=== PATIENT | female | born 1980 | race Caucasian/White ===

== ENCOUNTER 2016-09-14 23:05 | Outpatient (CLI) | payer MEDICAID ==
[~2016-09-14] VITALS: Ht 154.9 cm; Wt 91.8 kg
[~2016-09-14 23:05] MED LIST: PREN1TAB49
[2016-09-14 23:35] VITALS: BP 113/59; PULSE 78; RESP 18
--- NOTE | 2016-09-15 00:39 | QN ---
Documentation Comment 35+wks GA R/o labot No VB (Had spotting earlier) +FM No LOF No CTXs NST reassring [place] No CTS Pelvic L/C/p No blood in vaginal vault ---IF BPP 04/05 can be discharged Instructions reviewed with patient CITLALLI KELLY M.D. Sep 15, 2016 00:39
[2016-09-15 01:29] LABS: ADD UMIC YES; URINE BILIRUBIN (Dip) NEGATIVE (NEGATIVE); URINE BLOOD (Dip) 2+ (NEGATIVE); URINE COLOR LT. YELLOW (YELLOW); URINE GLUCOSE (Dip) NEGATIVE (NEGATIVE); URINE KETONES (Dip) TRACE (NEGATIVE); URINE LEUKOCYTE ESTERASE (Dip) 2+ (NEGATIVE); URINE NITRITE (Dip) NEGATIVE (NEGATIVE); URINE UROBILINOGEN (Dip) 0.2 E.U./dL (0.1-1.0)
[2016-09-15 01:39] LABS: URINE TOTAL PROTEIN (Dip) NEGATIVE (NEGATIVE)
[2016-09-15 01:47] LABS: BACTERIA,URINE MANY; SQUAMOUS EPITHELIAL CELL,UR MANY; URINE RBCS 0-2 /HPF ([, 0])
--- NOTE | 2016-09-15 01:58 | RADRPT ---
PROCEDURE: US OB biophysical profile. CLINICAL INDICATION: Bleeding TECHNIQUE: Multiple sonographic images of the pelvis were obtained. The images were reviewed on a PACS workstation. COMPARISON: No pertinent prior examinations were submitted for comparison. FINDINGS: There is a single viable intrauterine gestation. Cardiac activity is present with 154 beats per min sandra. There is a vertex presentation. The placenta is lateral on the right, grade 1/2 in appearance. There is a normal amount of amniotic fluid with an ADELINA = 12.2 cm. Biophysical profile: movement 2/2 tone 2/2. breathing 2/2 ADELINA 2/2 Total 04/05 IMPRESSION: Normal biophysical profile. RPTAT: HIKT . .Juan Carlos Saucedo MD, MD Date Time Electronically viewed and signed by .Juan Carlos Saucedo MD, on 09/15/2016 01:58 .T/
--- NOTE | 2016-09-15 01:59 | RADRPT ---
PROCEDURE: US OB. CLINICAL INDICATION: Vaginal bleeding. TECHNIQUE: Multiple sonographic images of the pelvis were obtained. Transabdominal imaging only w as performed. The images were reviewed on a PACS workstation. COMPARISON: 07/12/2016. FINDINGS: Single live intrauterine is identified. Cardiac activity is present with 144 beats per mi nute. There is a vertex presentation. Measurements: BPD = 36 weeks 0 days. HC = 34 weeks 6 days. AC = 40 weeks 0 days. FL = 36-week 0 days. Estimated gestational age of approximately 36 weeks 5 days. The estimated date of delivery is 10/08/2016. The EFW = 3381 g which is at the 96 percentile. Limited evaluation of anatomy demonstrates abnormal slightly decreased ratio of the head circu mference to abdominal circumference, femur length to abdominal circumference and slightly increased femur length to head circumference. The placenta is right lateral. There is no evidence for an abruption or placenta previa. IMPRESSION: Single live intrauterine gestation of approximately 36 weeks 5 days. weight is 3381 g which i s at the 96 percentile. Abnormal measurement ratios raising possibility of IUGR. RPTAT: HMVK .Juan Dean MD, MD Date Time Electronically viewed and signed by .Juan Dean MD, MD on 09/15/2016 01:59 .K/
--- NOTE | 2016-09-15 03:14 | TRIAGE ---
OB Triage Datetime Report Generated by CPN: 09/15/2016 03:13 Datetime: 09/15/2016 01:46 Monitor Mode: External US Datetime: 09/15/2016 00:36 Labor Evaluation Frequency: q15 Monitor Mode: External Quality: Mild Pattern: Normal: <= 5 Contractions in 10 Minutes Resting Tone [place]: Relaxed Heart Rate FHR Baseline Rate: 140 Monitor Mode: External US FHR Baseline Changes: No Baseline Change Variability: Moderate 6-25 bpm Accelerations: 15X15 Decelerations: None Category: Category I Vaginal Exam Dilatation (cms): 0.0 Effacement (%): 0 Station: -3 Exam By: Dr Rosas Membrane Status: Intact Vaginal Bleeding: None Cervix, Consistency: Moderate Cervix, Position: Posterior Datetime: 09/14/2016 23:55 Stage of : OB Triage Labor Evaluation Frequency: x1 Monitor Mode: External Quality: Mild Pattern: Normal: <= 5 Contractions in 10 Minutes Resting Tone [place]: Relaxed Heart Rate FHR Baseline Rate: 140 Monitor Mode: External US Variability: Moderate 6-25 bpm Accelerations: 15X15 Decelerations: None Category: Category I Datetime: 09/14/2016 23:41 Time of Arrival: 09/14/2016 23:04 EGA: 35.5 Arrived By: Wheelchair Arrived From: Home Chief Complaint: SAB 2 w/ hx PTD presents w/ c/o "sm amt blood dripping when went to [place] 30 mi n ago" Movement: Present Contractions: Denies/Absent Rupture of Membranes: Denies Vaginal Bleeding: Small Vaginal Discharge: Denies Recent Sexual Intercouse: Denies Abdominal Trauma: Not Applicable Patient Complaints: Other Initial Plan: EFM Datetime: 09/14/2016 23:24 Labor Evaluation Frequency: placed Monitor Mode: External Resting Tone [place]: Relaxed Monitor Mode: External US Comments: FHT 140 Datetime: 07/12/2016 19:53 EGA: 26.4 Datetime: 07/12/2016 19:49 Fall Risk Assessment Fall Score: 0 Fall Risk Score Definition: No Risk: No action required
== END 2016-09-15 03:07 | disposition home or self-care (01) ==
LOC: L-D 23:05 → OBT 23:05
PROVIDERS: ATTEND Obstetrics & Gynecology
DX: O26.853 Spotting complicating pregnancy, third trimester (principal); O09.523 Supervision of elderly multigravida, third trimester; Z3A.35 35 weeks gestation of pregnancy
CPT/HCPCS: 76815; 76818; 81001; 81003; G0463

== ENCOUNTER 2016-09-17 22:47 | Outpatient (CLI) | payer MEDICAID ==
[~2016-09-17] VITALS: Ht 154.9 cm; Wt 93.0 kg
[2016-09-17 22:49] VITALS: Ht 154.9 cm; Wt 93.0 kg
[2016-09-17 22:55] VITALS: BP 118/55; PULSE 75; RESP 18
--- NOTE | 2016-09-18 00:27 | RADRPT ---
PROCEDURE: Biophysical profile. CLINICAL INDICATION: Pelvic pain. TECHNIQUE: Multiple sonographic images of the pelvis were obtained with transabdominal technique. COMPARISON: 09/15/2016. FINDINGS: There is a single living intrauterine gestation with the fetus in a vertex position. The placenta i s fundal in location, grade II. heart tones of 144 beats per minute are identified. There is normal amniotic fluid volume with an ADELINA of 14.8 cm. breathing movements = 2 Gross body movements = 2 tone = 2 Qualitative AFV = 2 IMPRESSION: Biophysical profile 8 out of 8. .Mekhi Lombardo MD, Date Time Electronically viewed and signed by .Mekhi Lombardo MD, on 09/18/2016 00:26 .T/
--- NOTE | 2016-09-18 00:52 | TRIAGE ---
OB Triage Datetime Report Generated by CPN: 09/18/2016 00:52 Datetime: 09/18/2016 00:16 Heart Rate FHR Baseline Rate: 130 Comments: u/s changed Datetime: 09/17/2016 23:46 Heart Rate FHR Baseline Rate: 130 Monitor Mode: External US Comments: Baby difficult to monitor Datetime: 09/17/2016 23:26 Monitor Mode: External Datetime: 09/17/2016 22:54 Stage of : OB Triage Temperature Route: Oral Datetime: 09/17/2016 22:52 Maternal Assessment Level of Consciousness: Fully Conscious Headache: Denies Blurred Vision: No Nausea/Vomiting: Denies RUQ Epigastric Pain: Denies Facial Edema: None Labor Evaluation Frequency: placed Monitor Mode: External Heart Rate FHR Baseline Rate: 140 Monitor Mode: External US Pain Assessment Pain Scale: 6 Pain Presence: Intermittent Pain Type: Cramping Pain Location: Abdomen Datetime: 09/17/2016 22:50 Time of Arrival: 09/17/2016 22:43 EGA: 36.1 Arrived By: Ambulatory Arrived From: Home Chief Complaint: w/ orders for follow-up NST/BPP d/t u/s result of possible IUGR Tues. Movement: Present Contractions: Occasional Contractions: q15-20 Rupture of Membranes: Denies Vaginal Bleeding: None Vaginal Discharge: Denies Recent Sexual Intercouse: Denies Abdominal Trauma: Not Applicable Patient Complaints: Cramping Time Provider Notified: 09/18/2016 00:35 Provider Notified: Dr Nguyen Initial Plan: NST/BPP Datetime: 09/15/2016 03:00 Stage of : OB Triage Labor Evaluation Frequency: 5-10 Monitor Mode: External Quality: Mild Pattern: Normal: <= 5 Contractions in 10 Minutes Resting Tone [place]: Relaxed Contraction Comments: pt denies feeling discomfort Heart Rate FHR Baseline Rate: 130 Monitor Mode: External US FHR Baseline Changes: No Baseline Change Variability: Moderate 6-25 bpm Accelerations: 15X15 Decelerations: None Category: Category I Pain Assessment Pain Scale: 0 Pain Presence: None/Denies Pain Type: N/A Datetime: 09/14/2016 23:41 EGA: 35.5 Datetime: 07/12/2016 19:53 EGA: 26.4 Datetime: 07/12/2016 19:49 Fall Risk Assessment Fall Score: 0 Fall Risk Score Definition: No Risk: No action required
== END 2016-09-18 00:50 | disposition home or self-care (01) ==
LOC: L-D 22:47 → OBT 22:47
PROVIDERS: ATTEND Obstetrics & Gynecology
DX: O62.9 Abnormality of forces of labor, unspecified (principal); R10.2 Pelvic and perineal pain; O09.523 Supervision of elderly multigravida, third trimester; Z3A.36 36 weeks gestation of pregnancy
CPT/HCPCS: 76818; Z7500; G0463

== ENCOUNTER 2016-10-08 05:53 | Inpatient (IN) | payer MEDICAID ==
[~2016-10-08] VITALS: Ht 154.9 cm; Wt 93.1 kg
[2016-10-08 05:58] VITALS: BP 134/83; PULSE 82; RESP 18
[2016-10-08] MEDS ORDERED: LACTATED RINGER'S 1,000 ML IV SCH (05:59)
[2016-10-08] MEDS ORDERED: OXYTOCIN 30 UNITS/LR 500 ML IV SCH ×3 (06:00→08:00)
[2016-10-08] MEDS ORDERED: BUTORPHANOL 2 MG INJ IV PRN (06:00)
[2016-10-08] MEDS ORDERED: AMPICILLIN 2 GM/NS (PMX) 100 ML IV ONE (06:00)
[2016-10-08] MEDS ORDERED: OXYTOCIN 30 UNITS/LR 500 ML IV PRN ×2 (06:00→11:00)
[2016-10-08] MEDS ORDERED: CARBOPROST 250 MCG INJ IM PRN ×2 (06:00→11:00)
[2016-10-08] MEDS ORDERED: MISOPROSTOL 200 MCG TAB PR PRN ×2 (06:00→11:00)
[2016-10-08] MEDS ORDERED: METHYLERGONOVINE 0.2 MG INJ IM PRN ×2 (06:00→11:00)
[2016-10-08] MEDS ORDERED: IBUPROFEN 600 MG TAB PO PRN (06:00)
[2016-10-08] MEDS ORDERED: LIDOCAINE 1% (MPF) 30 ML INJ INJ PRN (06:00)
--- NOTE | 2016-10-08 06:07 | TRIAGE ---
OB Triage Datetime Report Generated by CPN: 10/08/2016 06:07 Datetime: 10/08/2016 06:04 Time of Arrival: 10/08/2016 05:45 EGA: 39.1 Arrived By: Wheelchair Arrived From: Home Chief Complaint: w/ c/o ucs. No PNR available Movement: Present Contractions: Regular Time Contractions Began: 10/08/2016 04:30 Contractions: q5 Rupture of Membranes: Denies Vaginal Bleeding: Moderate Vaginal Discharge: Present Recent Sexual Intercouse: Denies Abdominal Trauma: Not Applicable Patient Complaints: Contractions Time Provider Notified: 10/08/2016 06:00 Provider Notified: Dr Samuels Datetime: 09/18/2016 00:39 Stage of : OB Triage Datetime: 09/18/2016 00:35 Stage of : OB Triage Labor Evaluation Monitor Mode: External Pattern: Normal: <= 5 Contractions in 10 Minutes Resting Tone [place]: Relaxed Heart Rate FHR Baseline Rate: 130 Monitor Mode: External US FHR Baseline Changes: No Baseline Change Variability: Moderate 6-25 bpm Accelerations: 15X15 Decelerations: None Category: Category I Datetime: 09/17/2016 22:50 EGA: 36.1 Datetime: 09/14/2016 23:41 EGA: 35.5 Datetime: 07/12/2016 19:53 EGA: 26.4 Datetime: 07/12/2016 19:49 Fall Risk Assessment Fall Score: 0 Fall Risk Score Definition: No Risk: No action required
[2016-10-08 06:23] LABS: ADD SCAN DIFF NO
[2016-10-08 06:39] LABS: INR 0.84; PROTIME 11.5 Sec (12.2-14.2); PT RATIO 0.9
[2016-10-08 06:40] LABS: PARTIAL THROMBOPLASTIN TIME 27.7 Sec (25.0-35.0)
[2016-10-08 06:42] LABS: BASOPHILS % 0.6 % (0.0-2.0); EOSINOPHILS # 0.1 10^3/ul (0.0-0.5); HEMATOCRIT 34.3 % (37.0-47.0); HEMOGLOBIN 11.5 g/dl (12.0-16.0); LYMPHOCYTES # 1.8 10^3/ul (0.8-2.9); LYMPHOCYTES % 26.6 % (15.0-51.0); MEAN CORPUSCULAR HGB CONC 33.5 g/dl (32.0-37.0); MEAN CORPUSCULAR VOLUME 95.5 fl (82.0-101.0); MEAN PLATELET VOLUME 11.3 fl (7.4-10.4); MONOCYTE # 0.5 10^3/ul (0.3-0.9); MONOCYTES % 6.9 % (0.0-11.0); NEUTROPHIL # 4.2 10^3/ul (1.6-7.5); NEUTROPHILS % 62.7 % (39.0-77.0); PLATELET COUNT 235 10^3/UL (140-415); RED BLOOD COUNT 3.59 10^6/ul (4.20-5.40); RED CELL DISTRIBUTION WIDTH 13.2 % (11.5-14.5); WHITE BLOOD COUNT 6.6 10^3/ul (4.8-10.8)
--- NOTE | 2016-10-08 07:38 | HP ---
Date/Time of Note Date/Time of Note DATE: 10/08/16 TIME: 07:37 OB - History Hx of Present Free Text/Dictation in active labor 39 weeks Care: Good Care Ultrasounds: Normal mid trimester US Obstetrical Complications: None Medical Complications: None Past Family/Social History * Past Medical, Surgical, Family and Obstetric Histories reviewed from chart. OB Admission Exam Vital Signs Vital Signs Vital Signs Date Time Temp Pulse Resp B/P Pulse Ox O2 Delivery O2 Flow Rate FiO2 10/08/16 05:58 97.6 82 18 134/83 Room Air Physical Exam HEENT: WNL Heart: Rhythm Normal Lungs: Clear, Equal Abdomen: WNL Extremities: Normal Reflexes: Normal Cervical Dilatation: 10cm Effacement: 100% Station: +3 Membranes: Ruptured Amniotic Fluid: Clear Accelerations: Accelerations Present Intensity: Moderate OB Assessment/Plan Reason for admission: active labor Plan: Expectant Management IVET GARCIA MD Oct 08, 2016 07:38
--- NOTE | 2016-10-08 07:39 | LDN ---
Date/Time of Note Date/Time of Note DATE: 10/08/16 TIME: 07:38 Delivery Summary nsd w/o complications Anesthesia type: None Estimated blood loss: 350 Sponge & Needle done & correct: Yes All needle counts correct: Yes Any foreign bodies felt in the: No Problems: IVET GARCIA MD Oct 08, 2016 07:39
[2016-10-08] MEDS ORDERED: AMPICILLIN 1 GM/NS (PMX) 50 ML IV SCH (10:00)
[2016-10-08 10:40] VITALS: BP 126/58; PULSE 74; RESP 20
[2016-10-08] MEDS ORDERED: LACTATED RINGER'S 1,000 ML IV* SCH (10:40)
[2016-10-08] MEDS ORDERED: DIPHENHYDRAMINE 25 MG CAP PO PRN (11:00)
[2016-10-08] MEDS ORDERED: SENNA/DOCUSATE NA (8.6MG/50MG) TAB PO PRN (11:00)
[2016-10-08] MEDS ORDERED: LANOLIN 7 GM TUBE TOP PRN (11:00)
[2016-10-08] MEDS ORDERED: BENZOCAINE 20% 56 ML SPRAY TOP PRN (11:00)
[2016-10-08] MEDS ORDERED: ZOLPIDEM 5 MG TAB PO PRN (11:00)
[2016-10-08] MEDS ORDERED: ACETAMINOPHEN/CODEINE #3 TAB PO PRN (11:00)
[2016-10-08] MEDS ORDERED: ACETAMINOPHEN 325 MG TAB PO PRN (11:00)
[2016-10-08] MEDS ORDERED: MAGNESIUM HYDROXIDE 30ML CUP PO PRN (11:00)
[2016-10-08] MEDS: OXYTOCIN 30 UNITS/LR 500 ML IV SCH ×2 (11:08→14:40)
[2016-10-08] MEDS: WITCH HAZEL/GLYCERIN PAD PR PRN (11:54)
[2016-10-08] MEDS: IBUPROFEN 800 MG TAB PO SCH ×2 (12:00→18:00)
[2016-10-08 12:30] VITALS: BP 119/54; PULSE 69; RESP 18
[2016-10-08 16:10] VITALS: BP 109/55; PULSE 70; RESP 18
[2016-10-08 19:45] VITALS: BP 116/47; PULSE 72; RESP 18
[2016-10-09 04:15] VITALS: BP 108/59; PULSE 86; RESP 17
[2016-10-09] MEDS: IBUPROFEN 800 MG TAB PO SCH ×4 (05:26→18:00)
[2016-10-09 07:25] LABS: ADD SCAN DIFF NO
[2016-10-09 07:37] LABS: BASOPHILS % 0.3 % (0.0-2.0); EOSINOPHILS # 0.1 10^3/ul (0.0-0.5); EOSINOPHILS % 1.2 % (0.0-7.0); HEMATOCRIT 30.5 % (37.0-47.0); HEMOGLOBIN 10.4 g/dl (12.0-16.0); LYMPHOCYTES # 1.5 10^3/ul (0.8-2.9); LYMPHOCYTES % 16.5 % (15.0-51.0); MEAN CORPUSCULAR HEMOGLOBIN 32.8 pg (29.0-33.0); MEAN CORPUSCULAR VOLUME 96.7 fl (82.0-101.0); MEAN PLATELET VOLUME 9.3 fl (7.4-10.4); MONOCYTE # 0.6 10^3/ul (0.3-0.9); MONOCYTES % 7.2 % (0.0-11.0); NEUTROPHIL # 6.7 10^3/ul (1.6-7.5); NEUTROPHILS % 74.8 % (39.0-77.0); PLATELET COUNT 215 10^3/UL (140-440); RED BLOOD COUNT 3.15 10^6/ul (4.20-5.40); RED CELL DISTRIBUTION WIDTH 14.3 % (11.5-14.5)
[2016-10-09 07:45] VITALS: BP 113/59; PULSE 68; RESP 19
--- NOTE | 2016-10-09 11:17 | PD.PPDC ---
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
--- NOTE | 2016-10-09 11:20 | DS ---
Date/Time of Note Date/Time of Note DATE: 10/09/16 TIME: 11:19 Obstetrical Discharge Record Final Diagnosis Final Diagnosis: Term delivered Vaginal Delivery Obstetrical Delivery: Spontaneous, Laceration, Repaired Complications Augmentation: Yes Induction: No Condition on Discharge Physical Assessment Last Vitals: T= 98.5. BP 133/59. Voiding: Yes Bowel Movement: Yes Breast: Soft, non-tender Fundus: Firm Calf Tenderness: No Patient Condition: Good PAVAN BABCOCK MD Oct 09, 2016 11:20
[2016-10-09] MEDS ORDERED: INFLUENZA VIRUS VACCINE 0.5 ML SYG IM* ONE (11:30)
[2016-10-09 15:35] VITALS: BP 106/70; PULSE 80; RESP 19
[2016-10-09 20:00] VITALS: BP 122/55; PULSE 76; RESP 19
[2016-10-10 04:30] VITALS: BP 115/56; PULSE 73; RESP 19
[2016-10-10] MEDS: IBUPROFEN 800 MG TAB PO SCH ×3 (06:00→12:00)
[2016-10-10] MEDS: WITCH HAZEL/GLYCERIN PAD PR PRN (06:56)
[2016-10-10 08:15] VITALS: BP 119/73; PULSE 67; RESP 16
[2016-10-10] MEDS ORDERED: DIPHTH/TET/ACEL PERTUSS (ADULT) 0.5 ML VIAL IM* ONE (09:00)
[2016-10-10] MEDS ORDERED: MEASLES,MUMPS,RUBELLA VACCINE INJ SC* ONE (09:00)
[2016-10-10] MEDS ORDERED: VARICELLA VACCINE LIVE/PF 1,350 UNIT/0.5 ML ML SC* ONE (09:00)
[2016-10-11] MEDS ORDERED: INFLUENZA VIRUS VACCINE 0.5 ML SYG IM* ONE (09:00)
== END 2016-10-10 15:20 | disposition home or self-care (01) | DRG 775 ==
LOC: OBT 05:53 → L-D 05:54 → OBT 06:00 → L-D 06:00 → PP1 10:50
PROVIDERS: ADMIT Obstetrics & Gynecology; ATTEND Obstetrics & Gynecology
PROC: 10E0XZZ Delivery of Products of Conception, External Approach (ICD-10-PCS; principal; 2016-10-08)
PROC: 3E00X4Z Introduction of Serum, Toxoid and Vaccine into Skin and Mucous Membranes, External Approach (ICD-10-PCS; 2016-10-10)
DX: O80 Encounter for full-term uncomplicated delivery (principal); Z23 Encounter for immunization; Z3A.39 39 weeks gestation of pregnancy; Z37.0 Single live birth
CPT/HCPCS: 36415; 85025; 85610; 85730; 86592; 86900; 86901; 87340; 90686; 90715; 90716; 96360; G0463; J0290; J2590; J7120

== ENCOUNTER 2018-10-30 02:14 | Emergency (ER) | payer MEDICAID ==
[~2018-10-30] VITALS: Ht 154.9 cm; Wt 76.2 kg
[2018-10-30 02:21] VITALS: Ht 154.9 cm; Wt 76.2 kg
[2018-10-30] MEDS ORDERED: SOD CHLORIDE 0.9% 1,000 ML IV STA (02:48)
[2018-10-30] MEDS ORDERED: ONDANSETRON 4 MG INJ IV STA (02:48)
--- NOTE | 2018-10-30 03:04 | ERD ---
ER Documentation Chief Complaint Chief Complaint WEAKNESS, SOB, CONGESTION, VOMITING X 1 HOUR HPI This is a 38-year-old female presents ED with complaints of nausea and vomiting with associated lower abdominal pain that started 1 hour prior to arrival in ED. Patient states that she had 2 episodes of nonbilious nonbloody vomiting. Admits to chills and some weakness following the 2 episodes of vomiting. Denies shortness of breath despite what chief complaint states. Denies fever, sore throat, ear pain, hemoptysis, hematemesis, diarrhea, constipation, melena, hematochezia, chest pain, cough, shortness of breath, trouble breathing, sputum production, dysuria, hematuria and all other symptoms. No known drug allergies. Currently on menses. ROS All systems reviewed and are negative except as per history of present illness. Medications Home Meds Reported Medications Vits W-Ca,Fe,Fa(<1MG) () 1 Tab Tablet 09/09/11 Allergies Allergies: Coded Allergies: No Known Drug Allergy (Verified Allergy, Unknown, 10/08/16) PMhx/Soc History of Surgery: Yes (D&C 2X) Anesthesia Reaction: No Hx Neurological Disorder: No Hx Respiratory Disorders: No Hx Cardiac Disorders: No Hx Psychiatric Problems: No Hx Miscellaneous Medical Probl: No (abdominal pa) Hx Alcohol Use: No Hx Substance Use: No Hx Tobacco Use: No Smoking Status: Never smoker FmHx Family History: No diabetes Physical Exam Vitals Vital Signs Date Temp Pulse Resp B/P (MAP) Pulse Ox O2 O2 Flow FiO2 Time Delivery Rate 10/30/18 97.0 79 18 123/71 99 02:21 (88) Physical Exam Physical Exam Vitals signs: Reviewed by me. General: Well developed, well nourished, in no acute distress. Patient is awake and alert. Head: Normocephalic, atraumatic. Eyes: Normal conjunctiva, Pupils PERRLA, EOM intact grossly ENT: Pharynx is clear, Moist mucous membranes, external ears, nose and mouth normal Neck: Supple, no masses, lymphadenopathy or JVD Respiratory: Clear to auscultation bilaterally with no wheezing, rhonchi, rales, no distress Cardiovascular: RRR, no murmurs, rubs, or gallops Abdominal: Soft, n nondistended, no peritoneal signs, no rigidity, no surgical abdomen, bowel sounds present all 4 quadrants, nontender light deep palpation all 4 quadrants, McBurney's point nontender, no rebound tenderness, mild suprapubic discomfort Back: No midline tenderness. No flank tenderness Neurologic: Alert and oriented, moving all extremities, normal speech, no focal weakness, no cerebellar signs. Normal mentation Skin: warm and dry, No rash Psych: Anxious Result Diagram: 10/30/18 0308 10/30/18 0308 Results 24 hrs Laboratory Tests Test 10/30/18 03:08 10/30/18 03:13 White Blood Count 10.4 10^3/ul Red Blood Count 4.06 10^6/ul Hemoglobin 12.9 g/dl Hematocrit 38.4 % Mean Corpuscular Volume 94.6 fl Mean Corpuscular Hemoglobin 31.8 pg Mean Corpuscular Hemoglobin Concent 33.6 g/dl Red Cell Distribution Width 11.9 % Platelet Count 280 10^3/UL Mean Platelet Volume 10.0 fl Immature Granulocytes % 0.600 % Neutrophils % 83.5 % Lymphocytes % 9.5 % Monocytes % 4.7 % Eosinophils % 1.3 % Basophils % 0.4 % Nucleated Red Blood Cells % 0.0 /100WBC Immature Granulocytes # 0.060 10^3/ul Neutrophils # 8.7 10^3/ul Lymphocytes # 1.0 10^3/ul Monocytes # 0.5 10^3/ul Eosinophils # 0.1 10^3/ul Basophils # 0.0 10^3/ul Nucleated Red Blood Cells # 0.0 10^3/ul Urine Color YELLOW Urine Clarity CLOUDY Urine pH 7.0 Urine Specific [place] 1.024 Urine Ketones NEGATIVE mg/dL Urine Nitrite NEGATIVE mg/dL Urine Bilirubin NEGATIVE mg/dL Urine Urobilinogen NEGATIVE mg/dL Urine Leukocyte Esterase 3+ Sree/ul Urine Microscopic RBC 166 /HPF Urine Microscopic WBC 55 /HPF Urine Squamous Epithelial Cells MODERATE /HPF Urine Bacteria MODERATE /HPF Urine Mucus MODERATE /HPF Urine Hemoglobin 3+ mg/dL Urine Glucose NEGATIVE mg/dL Urine Total Protein 1+ mg/dl Sodium Level 141 mmol/L Potassium Level 4.0 mmol/L Chloride Level 108 mmol/L Carbon Dioxide Level 25 mmol/L Anion Gap 8 Blood Urea Nitrogen 11 mg/dl Creatinine 0.60 mg/dl Est Glomerular Filtrat Rate mL/min > 60 mL/min Glucose Level 103 mg/dl Calcium Level 8.7 mg/dl Total Bilirubin 0.3 mg/dl Direct Bilirubin 0.00 mg/dl Indirect Bilirubin 0.3 mg/dl Aspartate Amino Transf (AST/SGOT) 30 IU/L Alanine Aminotransferase (ALT/SGPT) 17 IU/L Alkaline Phosphatase 50 IU/L Troponin I < 0.012 ng/ml Total Protein 7.5 g/dl Albumin 4.0 g/dl Globulin 3.50 g/dl Albumin/Globulin Ratio 1.14 Lipase 106 U/L POC Beta HCG, Qualitative NEGATIVE Current Medications Medications Dose Sig/Deep Start Time Status Last (Trade) Ordered Route PRN Stop Time Admin Dose Reason Admin Sodium 1,000 ml @ Q1H STAT 10/30/18 DC 10/30/18 Chloride 1,000 mls/hr IV 02:48 10/30/18 03:10 03:47 Ondansetron 4 mg ONCE STAT 10/30/18 DC 10/30/18 HCl (Zofran IV 02:48 10/30/18 03:12 Inj) 02:52 Procedures/MDM EKG, MONITORS, & DIAGNOSTIC IMAGING: [place] [id number] Radiology Main Line: [phone] DIAGNOSTIC IMAGING REPORT Patient: LEO BLUNT : 1980 Age: 38 Sex: F MR #: [id number] DOS: 10/30/18 0248 Ordering MD: MELISSA HALL PA-C Location: [facility] Room/Bed: PROCEDURE: CT Abdomen and Pelvis without contrast. CLINICAL INDICATION: Abdominal discomfort TECHNIQUE: CT scan of the abdomen and pelvis without contrast was performed on a multi-detector high-resolution CT scanner. No intravenous contrast was administered. Coronal and sagittal reformatted images were obtained from the axial source images. The total exam CTDI equals 16 mGy and the total exam DLP equals 920 mGy-cm. DICOM images are available. One or more of the following dose reduction techniques were utilized: 1.) Automated exposure control 2.) Adjustment of the mA +/- kV according to patient's size 3.) Use of iterative reconstruction technique. COMPARISON: None. FINDINGS: Imaged portions of the chest are unremarkable. The liver, pancreas, and spleen are unremarkable. The gallbladder is within normal limits. No adrenal nodules are seen. There is no evidence for obstructive uropathy. There is a punctate nonobstructing calculus within the right renal mid pole. There are no suspicious adnexal lesions. The bladder is unremarkable. There is no evidence for bowel obstruction. The appendix is normal in caliber. There is moderate stool in the colon. There is no ascites. There is no intra-abdominal free air. There is no mesenteric, retroperitoneal or pelvic sidewall lymphadenopathy. The abdominal aorta is normal in caliber. Visualized osseous structures are intact. IMPRESSION: Punctate nonobstructing calculus within the right renal mid pole. No evidence for obstructive uropathy. Normal-caliber appendix. RPTAT: HAP Admit-r Gio, Physician Date Time Electronically viewed and signed by Admit-r Gio, Physician on 10/30/2018 04:31 AP/ CC: MELISSA HALL PA-C [id number] EKG read by laura: Rate/Rhythm: Regular rate and rhythm at a rate of 68 Intervals: Normal Impression: No evidence of ischemia or arrhythmia No ST elevation, no widened QRS, no VA interval prolongation, and no QT interval prolongation LAB INTERPRETATION: CBC shows no evidence of hemorrhage or infection, elevated neutrophil percentage of 83.5, Chemistry shows no evidence of significant electrolyte abnormalities or renal insufficiency Liver function test shows no evidence of acute biliary or hepatic dysfunction Lipase shows no evidence of acute pancreatitis Cardiac biomarkers show no evidence of acute myocardial injury or coronary ischemia Urine negative Urinalysis remarkable for 55 microscopic WBCs, 166 microscopic RBCs, 3+ leukocyte esterase ER COURSE: The patient was given IV normal saline Zofran The medication was well tolerated and the patient reports improvement in symptoms. The patient was stable throughout ED course. I kept the patient and/or family informed of laboratory and diagnostic imaging results throughout the emergency room course. The patient was promptly evaluated and a treatment plan was devised based on H&P and other data. This plan was discussed with the patient who agreed and had no further questions or concerns prior to discharge. MEDICAL DECISION MAKING: This is a 38-year-old female presents ED with complaints of nausea and vomiting with associated lower abdominal pain times [address] of the abdomen and pelvis is unremarkable. Blood work in the emergency department is also unremarkable. Urinalysis is remarkable for leukocyte esterase, RBCs and WBCs. given patient's suprapubic tenderness and urinalysis findings patient's pain and symptoms are likely due to UTI. At this time there is no gynecologic, genitourinary or gastrointestinal emergency. No evidence of obstructive pyelonephritis, sepsis, tubo-ovarian abscess, ovarian torsion, ectopic , appendicitis, small bowel obstruction, perforated viscus, pancreatitis, cholecystitis, among others. Vitals are stable patient can be managed close outpatient follow-up. Advised patient follow-up with primary care in the next 48 hours. Return to ED with worsening symptoms DISPOSITION PLAN: We discussed follow up with the patient's primary care doctor within 24 to 48 hours. Patient counseled regarding my diagnostic impression and care plan. Prior to discharge all questions answered. Pt agrees with treatment plan and understands strict return precautions. Precautionary instructions provided including instructions to return to the ER if not improving or for any worsening or changing symptoms or concerns. SPECIALIST FOLLOW UP RECOMMENDED: None Patient has been advised to follow up with primary care in 1-2 days. Disclaimer: Inadvertent spelling and grammatical errors are likely due to EHR/dictation software use and do not reflect on the overall quality of patient care. Also, please note that the electronic time recorded on this note does not necessarily reflect the actual time of the patient encounter. Departure Diagnosis: Primary Impression: UTI (urinary tract infection) Urinary tract infection type: site unspecified Hematuria presence: with hematuria Qualified Codes: N39.0 - Urinary tract infection, site not specified; R31.9 - Hematuria, unspecified Condition: Stable Patient Instructions: Understanding Urinary Tract Infections (UTIs) Referrals: [facility] Additional Instructions: Patient advised to return to the ED immediately for new or worsening symptoms. Patient advised to follow up with primary care provider in the next 24-48 hours. Patient verbalized understanding and agrees with treatment plan and course of action. If patient has no primary care they may follow up with one of the community clinics listed on the following page or one of the options listed below [facility] + [address] [address] or [place] [id number] [place] [address] or [facility] [address] [place] [address] MELISSA HALL PA-C Oct 30, 2018 03:04
[2018-10-30] MEDS ORDERED: CEPH-443 PO (04:56)
[2018-10-30 05:06] VITALS: BP 111/65; PULSE 80; RESP 20
== END 2018-10-30 05:07 | disposition home or self-care (01) ==
LOC: FTE 02:14
DX: N39.0 Urinary tract infection, site not specified (principal)
CPT/HCPCS: 36415; 74176; 80053; 81001; 81025; 83690; 84484; 85025; 93005; 96374; J2405; J7030; Z7502

== ENCOUNTER 2019-04-24 00:51 | Emergency (ER) | payer MEDICAID ==
[~2019-04-24] VITALS: Ht 154.9 cm; Wt 79.5 kg
[~2019-04-24 00:51] MED LIST changes: +CEPH-443 PO; +DICY10CA40 PO; +ONDA4TAB14 PO
[2019-04-24 00:57] VITALS: Ht 154.9 cm; Wt 79.5 kg
[2019-04-24] MEDS ORDERED: ONDANSETRON 4 MG INJ IV STA (01:39)
[2019-04-24] MEDS ORDERED: SOD CHLORIDE 0.9% 500 ML IV STA (01:39)
[2019-04-24] MEDS ORDERED: morphine 4 MG/ML VIAL IV STA (01:39)
[2019-04-24 03:00] VITALS: BP 108/62; PULSE 88; RESP 19
== END 2019-04-24 03:11 | disposition home or self-care (01) ==
LOC: E/R 00:51
DX: R10.9 Unspecified abdominal pain (principal); R11.10 Vomiting, unspecified
CPT/HCPCS: 36415; 80053; 81003; 83690; 84703; 85025; 96361; 96374; 96375; J2270; J2405; J7040; Z7502